=== PATIENT | male | born 1970 | race Caucasian/White ===

== ENCOUNTER 2017-02-13 08:31 | Emergency (ER) | payer OTHER ==
[~2017-02-13] VITALS: Ht 182.9 cm; Wt 68.0 kg
[2017-02-13 08:45] VITALS: BP 147/88
--- NOTE | 2017-02-13 08:49 | ED NECK/BACK PAIN COMPLAINT ---
History of Present Illness General Chief Complaint: Low Back Pain/Injury Stated Complaint: LOW BACK PAIN Source: patient Exam Limitations: no limitations Vital Signs & Intake/Output Vital Signs & Intake/Output Vital Signs Date Time Temp Pulse Resp B/P Pulse O2 O2 Flow FiO2 Ox Delivery Rate 02/13 0845 98.5 94 16 147/88 99 Room Air Allergies Coded Allergies: No Known Allergies (02/13/17) Reconcile Medications Cyclobenzaprine HCl 10 MG TABLET 1 TAB PO QPM PRN MUSCLE RELAXOR Ketorolac Tromethamine 10 MG TABLET 1 TAB PO TID PRN pain Methylprednisolone. (Medrol) 4 MG TAB.DS.PK 1 DP PO AD INFLAMMATION 6 on day 1 then reduce by one tablet daily until gone Triage Note: PT STATES THAT HIS R SIDE LOW BACK HAS BEEN BOTHERING HIME FOR ABOUT 6 WEEKS. PAIN SHOOTS DOWN HIS LEG. UNABLE TO SLEEP DUE TO THE PAIN AND THIS AM WOKE WITH NAUSEA. PT STATES THAT HE IS STRESSED. NOTED TO BE ANXIOUS AT TRIAGE. Triage Nurses Notes Reviewed? yes Onset: Gradual Duration: constant Timing: recent history Radiation: buttocks, upper legs HPI: Patient is a 46 year old male with a past medical history of chronic back pain 10 years who presents emergency and at the past 6 weeks his back pain has worsened and which now he is complaining of waxing and waning right-sided gluteal and upper leg posterior paresthesia and pain. Patient has taken over- the-counter NSAIDs with minimal relief of symptoms. Patient denies any mechanism injury or fall or trauma. Denies any surgical intervention his back. Denies any abdominal pain lower extremity swelling fevers chills. Patient does not have a primary care doctor. Patient states that due to the pain he has difficulty sleeping (HEBER TERRAZAS) Past History Travel History Traveled to [place] past 21 day No Medical History Any Pertinent Medical History? 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 No (HEBER TERRAZAS) Review of Systems Review of Systems Constitutional: Reports: no symptoms. Eyes: Reports: no symptoms. Ears, Nose, Throat, Mouth: Reports: no symptoms. Respiratory: Reports: no symptoms. Cardiovascular: Reports: no symptoms. Gastrointestinal/Abdominal: Reports: see HPI, nausea. Musculoskeletal: Reports: see HPI, back pain, muscle pain. Skin: Reports: no symptoms. Neurological/Psychological: Reports: no symptoms. All Other Systems: Reviewed and Negative (HEBER TERRAZAS) Physical Exam Physical Exam General Appearance: anxious Neck: normal inspection, supple, full range of motion Comments: HEENT: Normal EENT exam, Neck: Supple, no lymphadenopathy, normal range of motion without pain or tenderness Back: Normal inspection mild right lateral paralumbar muscular pain, no central spinous tenderness, mild decreased active range of motion noted Cardiovascular: Regular rate and rhythms no murmurs rubs or gallops, normal JVP Respiratory: Chest nontender. No respiratory distress.breath sounds clear to auscultation bilaterally Abdomen: Soft, nontender nondistended, no appreciable organomegaly. Normal bowel sounds. No ascites Extremity: No edema, no calf tenderness to palpation, normal and equal pulses. Bilateral lower extremity myotomes dermatomes intact Neuro: Alert oriented x3, motor sensory normal, Skin: No appreciable rash on exposed skin, skin is warm and dry. Psych: Mood and affect is normal, memory and judgment is normal. (HEBER TERRAZAS) Progress Differential Diagnosis: AAA, aortic dissection, C spine injury, carotid dissection, cauda equina syn, herniated disc, myofascial strain, pyelo/UTI, sciatica, spinal cord inj, thoracic outlet syn, T/L spine injury, ureterolithiasis Plan of Care: Current Medications Sig/Autumn Start time Last Medication Dose Stop Time Status Admin Ketorolac 30 MG ONCE ONE 02/13 915 UNVr Tromethamine 02/14 916 (Toradol) Prednisone 60 MG ONCE ONE 02/13 915 UNVr 02/14 916 Patient was requesting Ativan for his symptoms however patient due to HPI and exam findings has suspicion of lumbar radiculopathy. Patient does state that he tried his mother's opiates with no relief of symptoms. Patient's lower extremity were neurovascularly intact. Nontender abdomen patient was drinking water in the emergency room the patient had normal steady gait. Patient was strongly advised to follow up and establish a primary care doctor (HEBER TERRAZAS) Departure Departure Disposition: HOME OR SELF CARE Condition: Stable Clinical Impression Primary Impression: Back pain Secondary Impressions: Lumbar radiculopathy Referrals: PATIENT HAS NO PRIMARY CARE DR (PCP/Family) Additional Instructions: As discussed begin icing or heating the area 20 minutes every 2 hours for your symptoms. Begin the prescription OF ketorolac for pain and inflammation. Begin the prescription of Medrol Dosepak tomorrow as YOU HAVE received prednisone in the emergency room today, you WILL RECEIVE A phone call to set up a primary care doctor's appointment for further evaluation treatment, please go to this appointment. Prescriptions waiting at [facility]. If symptoms worsen return to emergency room Departure Forms: Customer Survey General Discharge Information Prescriptions: Current Visit Scripts Ketorolac Tromethamine 1 TAB PO TID PRN pain #15 TAB Methylprednisolone. (Medrol) 1 DP PO AD #1 DP 6 on day 1 then reduce by one tablet daily until gone Cyclobenzaprine HCl 1 TAB PO QPM PRN MUSCLE RELAXOR #7 TAB (HEBER TERRAZAS) PA/CALL WORKER PERSON Co-Sign Statement Statement: ED Attending supervision documentation- [] I saw and evaluated the patient. I have also reviewed all the pertinent lab results and diagnostic results. I agree with the findings and the plan of care as documented in the PA's/CALL WORKER PERSON's documentation. [X] I have reviewed the ED Record and agree with the PA's/CALL WORKER PERSON's documentation. [] Additions or exceptions (if any) to the PAs/CALL WORKER PERSON's note and plan are summarized below: [] (LUIS FINN,MAGDALENA)
[2017-02-13] MEDS ORDERED: KETOROLAC TROME10 M1 PO (09:04)
[2017-02-13] MEDS ORDERED: MEDROL4 M2 PO (09:04)
[2017-02-13] MEDS ORDERED: CYCLOBENZAPRINE10 M1 PO (09:04)
== END 2017-02-13 09:32 ==
LOC: ERH 08:31
DX: M54.5 Low back pain (principal); M54.16 Radiculopathy, lumbar region
CPT/HCPCS: 96372; J1885

== ENCOUNTER 2017-02-18 06:57 | Emergency (ER) | payer OTHER ==
[~2017-02-18] VITALS: Ht 182.9 cm; Wt 68.0 kg
[~2017-02-18 06:57] MED LIST: CYCLOBENZAPRINE10 M1 PO; KETOROLAC TROME10 M1 PO; MEDROL4 M2 PO
--- NOTE | 2017-02-18 08:45 | ED NECK/BACK PAIN COMPLAINT ---
History of Present Illness General Chief Complaint: Low Back Pain/Injury Stated Complaint: BACK PAIN Source: patient, old records Exam Limitations: no limitations Vital Signs & Intake/Output Vital Signs & Intake/Output Vital Signs Date Time Temp Pulse Resp B/P Pulse O2 O2 Flow FiO2 Ox Delivery Rate 02/18 0928 96.2 61 18 164/92 98 Room Air 02/18 0708 98.9 94 20 125/71 96 Room Air Allergies Coded Allergies: No Known Allergies (02/13/17) Reconcile Medications No Known Home Medications Triage Note: PT TO ED C/O CHRONIC BACK PAIN. WAS SEEN IN ED FOR THE SAME A FEW DAYS AGO. STATES HE RAN OUT OF MEDICATIONS. Triage Nurses Notes Reviewed? yes Onset: 1 month Duration: week(s):, constant, continues in ED, waxing and waning Timing: recent history Quality/Severity: severe, radiation, sharpness Location: lumbar spine, paraspinous muscles Radiation: buttocks, upper legs, lower legs Context: lifting, turning/bending Method of Injury: prior injury, twisted Loss of Consciousness: no loss of consciousness Modifying Factors: movement Associated Symptoms: lower back pain, muscle spasm, trouble walking HPI: 1 month prior to admission patient reports recurrent back pain after throwing garbage dumpster. He complains of right low back pain moderate to severe waxing and waning described as sharp radiating to the buttocks upper and lower leg worse with turning bending. He denies fever chills nausea vomiting diarrhea abdominal pain chest pain shortness breath headache dysuria rash bleeding change in motor sensory function change in bowel bladder habit. Past History Travel History Traveled to [place] past 21 day No Medical History Any Pertinent Medical History? 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 No Review of Systems Review of Systems Constitutional: Reports: no symptoms. Eyes: Reports: no symptoms. Ears, Nose, Throat, Mouth: Reports: no symptoms. Respiratory: Reports: no symptoms. Cardiovascular: Reports: no symptoms. Gastrointestinal/Abdominal: Reports: no symptoms. Musculoskeletal: Reports: see HPI, back pain. Skin: Reports: no symptoms. Neurological/Psychological: Reports: no symptoms. All Other Systems: Reviewed and Negative Physical Exam Physical Exam General Appearance: well developed/nourished, alert, awake, anxious, moderate distress Head: atraumatic, normal appearance Eyes: Bilateral: PERRL, EOMI. Ears, Nose, Throat, Mouth: hearing grossly normal Neck: normal inspection, supple, full range of motion, normal alignment Respiratory: normal breath sounds, chest non-tender, no respiratory distress, quiet respiration, lungs clear Cardiovascular: regular rate/rhythm, normal peripheral pulses, norml femoral pulses equa Peripheral Pulses: 4+ carotid (R), 4+ carotid (L) Gastrointestinal: normal bowel sounds, soft, non-tender, no organomegaly Back: normal inspection, decreased range of motion, muscle spasm, no vertebral tenderness Extremities: non-tender, normal range of motion Straight Leg Raising: Right: Pain at ____ degrees (5). Left: Pain at ____ degrees (5). Sensory: Medial Le: L4R, L4L. Top of Foot: 2: L5R, L5L. Sole of Foot: 2: SIR, VIVIANA. Motor: Deficit L4 Right: No Deficit L4 Left: No Deficit L5 Right: No Deficit L5 Left: No Deficit S1 Right: No Deficit S1 Right: No Ext. Big Toe: 3: L5 Left, L5 Right. DTR: Deficit L4 Left: No Deficit L4 Right: No Deficit S1 Left: No Deficit S1 Right: No Patellar: 3: L4 Right, L4 Left. 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 Discussed w/RAD: CT Scan. Radiology Impression: 1. No acute fracture or malalignment within the lumbar spine. 2. L4-L5 disc bulge and apparent small superimposed left paracentral disc protrusion. At L4-L5, there is [id number] right-sided foraminal stenosis and at least moderate left sided foraminal stenosis. 3. L5-S1 disc bulge and superimposed right paracentral disc extrusion resulting in posterior displacement/ impingement upon the transiting right S1 nerve root. Consider MR imaging of the lumbar spine to confirm these findings and better evaluate the soft tissue structures of the spine. Departure Departure Time of Disposition: 934 Disposition: HOME OR SELF CARE Condition: Stable Clinical Impression Primary Impression: Sciatica due to displacement of lumbar intervertebral disc Referrals: [facility] You should receive a call within the week to establish a primary care appointment. GEORGIE FINN,AMARI Manuel Call for neurosurgery follow up Departure Forms: Customer Survey General Discharge Information RELEASE- WORK Prescriptions: Current Visit Scripts Ibuprofen 1 TAB PO Q6PRN PRN pain #50 TAB Diazepam (Valium) 1-2 TAB PO Q6P PRN muscle strain/spasm #30 TAB Ref 1 Oxycodone HCl/Acetaminophen (Percocet 5-325 MG Tablet) 1 TAB PO Q6P PRN severe pain #15 TAB
--- NOTE | 2017-02-18 09:13 | CT SCAN REPORT ---
EXAMINATION: CT LUMBAR SPINE WITHOUT CONTRAST CLINICAL INFORMATION: 46-year-old male with right back pain radiating to the foot. COMPARISON: None TECHNIQUE: Helical non-contrast CT images were obtained through the lumbar spine and 0.625 mm, 1.25 and 2.5 mm axial reconstructions were reviewed along with sagittal and coronal MPRs. DLP: 272 mGy-cm FINDINGS: There is normal segmentation of the lumbar spine. The lumbar vertebra have well preserved height and alignment. The anterior and posterior elements are intact. No evidence of spondylolysis, spondylolisthesis or vertebral compression fracture. No paraspinal soft tissue mass or paraspinal fluid collection. Mild atherosclerotic calcification of the visualized abdominal aorta without aneurysm. No para-aortic lymphadenopathy. SPINAL LEVELS: T12-L1: Unremarkable. L1-L2: Unremarkable. L2-L3: The disc height is maintained. Mild disc bulge and mild facet arthropathy. No significant narrowing of the central spinal canal or neural foramina. L3-L4: The disc height is maintained. Mild disc bulge encroaches upon the inferior aspect of each neural foramen (right more so than left) resulting in mild bilateral foraminal narrowing. There is no high-grade foraminal stenosis or central canal stenosis. L4-L5: Minimal disc space narrowing, broad disc bulge and mild right-sided facet arthropathy. The disc bulge and vertebral osteophytes produce [id number]-[id number] right-sided foraminal stenosis and at least moderate left-sided foraminal stenosis as manifest by loss of perineural fat around the exiting left L4 nerve root. There is suggestion of a superimposed small left paracentral disc protrusion at this level. L5-S1: Disc bulge with apparent superimposed right paracentral disc extrusion. The extruded disc posteriorly displaces/compresses the transiting right S1 nerve root. Bulging disc material encroaches upon the inferior aspect of each neural foramen producing [id number] bilateral foraminal stenosis. There is mild right-sided facet hypertrophy. Sacrum and sacroiliac joints: Unremarkable. IMPRESSION: 1. No acute fracture or malalignment within the lumbar spine. 2. L4-L5 disc bulge and apparent small superimposed left paracentral disc protrusion. At L4-L5, there is [id number] right-sided foraminal stenosis and at least moderate left sided foraminal stenosis. 3. L5-S1 disc bulge and superimposed right paracentral disc extrusion resulting in posterior displacement/ impingement upon the transiting right S1 nerve root. Consider MR imaging of the lumbar spine to confirm these findings and better evaluate the soft tissue structures of the spine.
[2017-02-18 09:28] VITALS: BP 164/92
[2017-02-18] MEDS ORDERED: PERCOCET 5-3251 EACH PO (09:38)
[2017-02-18] MEDS ORDERED: VALIUM5 M2 PO (09:38)
[2017-02-18] MEDS ORDERED: IBUPROFEN800 M1 PO (09:38)
== END 2017-02-18 09:47 ==
LOC: ERH 06:57
DX: M54.41 Lumbago with sciatica, right side (principal); M51.26 Other intervertebral disc displacement, lumbar region
CPT/HCPCS: 96374; 96375; J1885; J3360

== ENCOUNTER 2017-03-02 09:03 | Emergency (ER) | payer OTHER ==
[~2017-03-02] VITALS: Ht 182.9 cm; Wt 68.0 kg
[~2017-03-02 09:03] MED LIST changes: +IBUPROFEN800 M1 PO; +PERCOCET 5-3251 EACH PO; +VALIUM5 M2 PO
[2017-03-02 09:14] VITALS: BP 142/91
--- NOTE | 2017-03-02 09:47 | ED NECK/BACK PAIN COMPLAINT ---
History of Present Illness General Chief Complaint: Low Back Pain/Injury Stated Complaint: LOWER BACK PAIN Source: patient, old records Exam Limitations: no limitations Vital Signs & Intake/Output Vital Signs & Intake/Output ED Intake and Output 03/03 0000 03/02 1200 Intake Total Output Total Balance Patient 150 lb Weight Allergies Coded Allergies: No Known Allergies (02/13/17) Reconcile Medications Dexamethasone 4 MG TABLET 2 TAB PO DAILY lumbar radiculopathy Diazepam (Valium) 5 MG TABLET 1 TAB PO Q8 PRN pain/muscle relaxant Diazepam (Valium) 5 MG TABLET 1-2 TAB PO Q6P PRN muscle strain/spasm Ibuprofen 800 MG TABLET 1 TAB PO Q6PRN PRN pain Oxycodone HCl/Acetaminophen (Percocet 5-325 MG Tablet) 5 MG-325 MG TABLET 1 TAB PO Q6P PRN severe pain Triage Note: 47 Y/O MALE C/O LOW BACK PAIN RADIATING DOWN R LEG; 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" AND HAS BEEN PRESCRIBED VARIOUS MEDICATIONS - STATES DIAZAPEM HAS WORKED THE BEST; TOOK 800 MG MOTRIN APPROX 1 HOUR AGO WITH SOME RELIEF. UNABLE TO F/U WITH NEUROSURGEON DUE TO INSURANCE ALSO UNABLE TO OBTAIN OUTPATIENT MRI. Triage Nurses Notes Reviewed? yes HPI: Patient is a 47-year-old male presents complaining of severe right low back pain radiating down the right lower extremity. Patient reports that he began with pain approximately 10 years ago, exacerbated over the past 2-3 months. Patient has been seen multiple times in the emergency department. Patient had a CT scan of his lumbar spine showing herniated disks. Patient saw his primary care provider last week and reports that he is being referred to pain management and possibly for an MRI. Patient reports pain is consistent with his chronic pain radiates down his right lower extremity with intermittent paresthesias in his right toes. Patient does not recall any recent injuries that caused his exacerbation of pain. Patient has been taking ibuprofen and Valium with moderate improvement. Last dose of Valium was last night. Patient denies incontinence, numbness in his rectum, rash, fevers. (ROBBY UNDERWOOD,AMARI) Past History Travel History Traveled to [place] past 21 day No Medical History Any Pertinent Medical History? 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 No (AMARI NIETO) Review of Systems Review of Systems Constitutional: Denies: chills, fever. Eyes: Reports: no symptoms. Ears, Nose, Throat, Mouth: Reports: no symptoms. Respiratory: Reports: no symptoms. Cardiovascular: Reports: no symptoms. Gastrointestinal/Abdominal: Denies: abdominal pain. Musculoskeletal: Reports: see HPI. Skin: Reports: no symptoms. Neurological/Psychological: Reports: see HPI. (AMARI NIETO) Physical Exam Physical Exam General Appearance: well developed/nourished, alert, awake Head: atraumatic, normal appearance Eyes: Bilateral: normal appearance, PERRL, EOMI. Ears, Nose, Throat, Mouth: hearing grossly normal Neck: normal inspection, supple, full range of motion Respiratory: normal breath sounds, chest non-tender, no respiratory distress, lungs clear Cardiovascular: normal peripheral pulses Peripheral Pulses: 2+ dorsalis pedis (R), 2+ dorsalis pedis (L) Gastrointestinal: soft, non-tender Back: mild right lumbar paraspinal tenderness Straight Leg Raising: Right: Pain at ____ degrees (30). DTR: Patellar: 2: L4 Right, L4 Left. Achilles: 2: S1 Right, S1 Left. Neurologic/Psych: no motor/sensory deficits, awake, alert, oriented x 3 (AMARI NIETO) Progress Differential Diagnosis: cauda equina syn, herniated disc, myofascial strain, sciatica, spinal cord inj, T/L spine injury Plan of Care: Patient does not appear to require emergent MRI. (AMARI NIETO) Departure Departure Time of Disposition: 955 Disposition: HOME OR SELF CARE Condition: Stable Clinical Impression Primary Impression: Lumbar disc herniation with radiculopathy Referrals: NIKOLAS LY APRN (PCP/Family) Additional Instructions: Contact your primary care provider today. Return to the ER if numbness in your rectum, incontinence, increasing weakness, or worsening of symptoms. Departure Forms: Customer Survey General Discharge Information Prescriptions: Current Visit Scripts Diazepam (Valium) 1 TAB PO Q8 PRN pain/muscle relaxant #12 TAB Dexamethasone 2 TAB PO DAILY #6 TAB (AMARI NIETO) PA/HOSPITAL LIBRARIAN Co-Sign Statement Statement: ED Attending supervision documentation- [] I saw and evaluated the patient. I have also reviewed all the pertinent lab results and diagnostic results. I agree with the findings and the plan of care as documented in the PA's/HOSPITAL LIBRARIAN's documentation. [X] I have reviewed the ED Record and agree with the PA's/HOSPITAL LIBRARIAN's documentation. [] Additions or exceptions (if any) to the PAs/HOSPITAL LIBRARIAN's note and plan are summarized below: [] (LUIS FINN,MAGDALENA)
[2017-03-02] MEDS ORDERED: VALIUM5 M2 PO (09:58)
[2017-03-02] MEDS ORDERED: DEXAMETHASONE4 M1 PO (09:58)
== END 2017-03-02 10:03 ==
LOC: ERH 09:03
DX: M51.16 Intervertebral disc disorders with radiculopathy, lumbar region (principal)

== ENCOUNTER 2017-04-15 11:06 | Emergency (ER) | payer OTHER ==
[~2017-04-15] VITALS: Ht 182.9 cm; Wt 63.5 kg
[~2017-04-15 11:06] MED LIST changes: +DEXAMETHASONE4 M1 PO
[2017-04-15 11:09] VITALS: BP 148/85
--- NOTE | 2017-04-15 11:28 | ED NECK/BACK PAIN COMPLAINT ---
History of Present Illness General Chief Complaint: Low Back Pain/Injury Stated Complaint: BACK PAIN Source: patient Exam Limitations: no limitations Vital Signs & Intake/Output Vital Signs & Intake/Output Vital Signs Date Time Temp Pulse Resp B/P B/P Pulse O2 O2 Flow FiO2 Mean Ox Delivery Rate 04/15 1109 98.0 118 20 148/85 98 Room Air Allergies Coded Allergies: No Known Allergies (02/13/17) Reconcile Medications Diazepam (Valium) 5 MG TABLET 1 TAB PO BIDP PRN back spasms Methylprednisolone. (Medrol) 4 MG TAB.DS.PK 1 DP PO AD back pain 6 on day 1 then reduce by one tablet daily until gone Oxycodone HCl/Acetaminophen (Percocet 5-325 MG Tablet) 5 MG-325 MG TABLET 1 TAB PO BID PRN pain Triage Note: PT TO ED C/O CHRONIC BACK PAIN. HAS BEEN SEEN IN ED MULTIPLE TIMES FOR SAME. Triage Nurses Notes Reviewed? yes Onset: Gradual Duration: worse persistent since (4 months) Timing: recent history Quality/Severity: moderate, severe Location: lumbar spine, paraspinous muscles Context: old injury HPI: Patient is a 47-year-old male presenting to the emergency department with chief complaint of low back pain going on for the past 5-10 years worse over the past 4 months. Patient reports that pain is worse with movement. Pain occasionally radiates down both legs, right greater than left. Patient also reports that he' s had intermittent weakness in the right lower extremity and noticed that his muscles are smaller on the right lower extremity over the past several months. Denies any urinary incontinence or retention. No abdominal pain. Has been taking Motrin [id number] without relief. Patient reports that he has been seen and evaluated here over the past several months for similar symptoms. He tried to get into see an case resolution specialist but they will not see him until he gets the MRI. So far patient's insurance has denied obtaining the MRI as an outpatient procedure. Has not had any physical therapy for his symptoms. Patient not sure what to do at this point. No fevers or chills. (ROSALIA MAXWELL) Past History Travel History Traveled to [place] past 21 day No Medical History Any Pertinent Medical History? 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 No (ROSALIA MAXWELL) Review of Systems Review of Systems Constitutional: Reports: no symptoms. Comments Review of systems: See HPI, All other systems negative. Constitutional, no chills fever HEENT: No visual changes no sore throat no congestion Cardiovascular: No chest pain ,palpitation Skin, no jaundice no rashes Respiratory: No dyspnea cough sputum or hemoptysis GI: No nausea no vomiting : No dysuria No hematuria Muscle skeletal: no neck pain, Neurologic: No numbness no confusion no espinosa Psych: No stress anxiety or depression,. Heme/endocrine: No bruising no bleeding no polyuria or polydipsia Immunology: No splenectomy or history of AIDS (ROSALIA MAXWELL) Physical Exam Physical Exam General Appearance: no apparent distress, thin Neck: normal inspection, supple Comments: Well-developed well-nourished person in no acute distress HEENT: Normal EENT exam, extraocular motion intact, no nystagmus. Pupils equally round and reactive to light and accommodation. Nose is atraumatic. Pharynx normal. No swelling or edema. Neck: Supple, no lymphadenopathy, normal range of motion without pain or tenderness Back: Tenderness over lumbar spine and lumbar paraspinal muscles, no CVA tenderness. Range of motion with forward flexion and extension limited due to pain Cardiovascular: Regular rate and rhythms no murmurs rubs or gallops, normal JVP Respiratory: Chest nontender. No respiratory distress.breath sounds clear to auscultation bilaterally Abdomen: Soft, nontender nondistended, no appreciable organomegaly. Normal bowel sounds. No ascites Extremity: No edema, no calf tenderness to palpation, normal and equal pulses. Neuro: Alert oriented x3, diminished sensation over right calf, patellar, reflexes 2+ bilaterally, right lower extremity strength 4/5 with knee extension and knee flexion, left lower extremity strength 5/5 Skin: No appreciable rash on exposed skin, skin is warm and dry. Psych: Mood and affect is normal, memory and judgment is normal. (ROSALIA MAXWELL) Progress Differential Diagnosis: cauda equina syn, herniated disc, myofascial strain, pyelo/UTI, sciatica, spinal cord inj, T/L spine injury Plan of Care: Orders Procedure Date/time Status MRI-LUMBAR SPINE 04/15 1131 Active Diagnostic Imaging: Viewed by Me: MRI. Discussed w/RAD: MRI. Radiology Impression: PATIENT: JOSEE BRADLEY PRESENT AGE: 47 PATIENT ACCOUNT NO: [id number] : 70 LOCATION: [facility] ORDERING PHYSICIAN: ROSALIA UNDERWOOD SERVICE DATE: 04/15/17 EXAM TYPE: MRI - MRI-LUMBAR SPINE EXAMINATION: MR LUMBAR SPINE WITHOUT CONTRAST CLINICAL INFORMATION: Right lower extremity weakness. Decreased sensation. COMPARISON: CT scan of the lumbar spine 02/18/2017. TECHNIQUE: MRI of the lumbar spine without contrast was obtained using routine sequences. FINDINGS: There is nonspecific straightening of lumbar lordosis. Vertebral alignment is otherwise maintained in the sagittal dimension. Vertebral body heights are preserved. There are type I degenerative endplate changes at L5-S1. Bone marrow signal intensity is otherwise unremarkable. The tip of the conus medullaris is located at the level of L1-L2. No mass effect on the conus. Visualized distal cord signal intensity is normal. At L1-L2 the annular contour is normal. There is asymmetric arthrosis of the left facet joint. No canal or neuroforaminal compromise. At L2-L3 there is a broad right far lateral protrusion superimposed upon a diffusely bulging disc causing ventral flattening of the thecal sac. Bilateral facet degenerative change. Mild mass effect on the extraforaminal segment of the right L2 nerve root. At L3-L4 there is a broad right far lateral protrusion superimposed upon a diffusely bulging disc causing ventral flattening of the thecal sac. Bilateral facet degenerative change. There is mild mass effect on the extraforaminal segments of both L3 nerve roots. At L4-L5 there is diffusely bulging disc. Bilateral facet degenerative change. No canal stenosis. Moderate compression of the foraminal segment of the left L4 nerve root and mild mass effect on the foraminal segment of the right L4 nerve root. At L5-S1 there is a prominent right subarticular extrusion with 0.9 cm caudal subligamentous extension of extruded disc material that severely compresses the right traversing S1 nerve roots and medially displaces the right traversing S2 nerve roots. Mild mass effect on the foraminal segments of both L5 nerve roots at this level. Limited visualization of the retroperitoneal structures reveals no abnormal finding. Psoas and paraspinal muscle groups are symmetric. IMPRESSION: There is a prominent right subarticular extrusion at L5-S1 that severely compresses the right traversing S1 nerve roots and medially displaces the right traversing S2 nerve roots. There is no canal stenosis. There are varying degrees of mass effect on the foraminal and extraforaminal segments of the nerve roots at multiple additional levels as described above. For instance at L4-L5 there is moderate compression of the foraminal segment of left L4 nerve root and mild mass effect on the foraminal segment of the right L4 nerve root. (AZALEA UNDERWOOD,ROSALIA) Departure Departure Time of Disposition: 1416 Disposition: HOME OR SELF CARE Condition: Stable Clinical Impression Primary Impression: Back pain Qualifiers: Back pain location: low back pain Chronicity: chronic Back pain laterality: right Sciatica presence: with sciatica Sciatica laterality: sciatica of right side Qualified Codes: M54.41 - Lumbago with sciatica, right side; G89.29 - Other chronic pain Referrals: NAS FINN,NIKOLAS FORREST APRN (PCP/Family) Additional Instructions: Follow-up with your orthopedic as well as neurosurgery call to make an appointment. Take pain medication as prescribed. Return for worsening symptoms or concerns. PATIENT: JOSEE BRADLEY PRESENT AGE: 47 PATIENT ACCOUNT NO: [id number] : 70 LOCATION: [facility] ORDERING PHYSICIAN: ROSALIA UNDERWOOD SERVICE DATE: 04/15/17 EXAM TYPE: MRI - MRI-LUMBAR SPINE EXAMINATION: MR LUMBAR SPINE WITHOUT CONTRAST CLINICAL INFORMATION: Right lower extremity weakness. Decreased sensation. COMPARISON: CT scan of the lumbar spine 02/18/2017. TECHNIQUE: MRI of the lumbar spine without contrast was obtained using routine sequences. FINDINGS: There is nonspecific straightening of lumbar lordosis. Vertebral alignment is otherwise maintained in the sagittal dimension. Vertebral body heights are preserved. There are type I degenerative endplate changes at L5-S1. Bone marrow signal intensity is otherwise unremarkable. The tip of the conus medullaris is located at the level of L1-L2. No mass effect on the conus. Visualized distal cord signal intensity is normal. At L1-L2 the annular contour is normal. There is asymmetric arthrosis of the left facet joint. No canal or neuroforaminal compromise. At L2-L3 there is a broad right far lateral protrusion superimposed upon a diffusely bulging disc causing ventral flattening of the thecal sac. Bilateral facet degenerative change. Mild mass effect on the extraforaminal segment of the right L2 nerve root. At L3-L4 there is a broad right far lateral protrusion superimposed upon a diffusely bulging disc causing ventral flattening of the thecal sac. Bilateral facet degenerative change. There is mild mass effect on the extraforaminal segments of both L3 nerve roots. At L4-L5 there is diffusely bulging disc. Bilateral facet degenerative change. No canal stenosis. Moderate compression of the foraminal segment of the left L4 nerve root and mild mass effect on the foraminal segment of the right L4 nerve root. At L5-S1 there is a prominent right subarticular extrusion with 0.9 cm caudal subligamentous extension of extruded disc material that severely compresses the right traversing S1 nerve roots and medially displaces the right traversing S2 nerve roots. Mild mass effect on the foraminal segments of both L5 nerve roots at this level. Limited visualization of the retroperitoneal structures reveals no abnormal finding. Psoas and paraspinal muscle groups are symmetric. IMPRESSION: There is a prominent right subarticular extrusion at L5-S1 that severely compresses the right traversing S1 nerve roots and medially displaces the right traversing S2 nerve roots. There is no canal stenosis. There are varying degrees of mass effect on the foraminal and extraforaminal segments of the nerve roots at multiple additional levels as described above. For instance at L4-L5 there is moderate compression of the foraminal segment of left L4 nerve root and mild mass effect on the foraminal segment of the right L4 nerve root. Departure Forms: Customer Survey General Discharge Information Prescriptions: Current Visit Scripts Oxycodone HCl/Acetaminophen (Percocet 5-325 MG Tablet) 1 TAB PO BID PRN pain #10 TAB Methylprednisolone. (Medrol) 1 DP PO AD #1 DP 6 on day 1 then reduce by one tablet daily until gone Diazepam (Valium) 1 TAB PO BIDP PRN back spasms #10 TAB (ROSALIA MAXWELL) PA/[employer] P[employer]ER Co-Sign Statement Statement: ED Attending supervision documentation- [] I saw and evaluated the patient. I have also reviewed all the pertinent lab results and diagnostic results. I agree with the findings and the plan of care as documented in the PA's/FINE ARTS PACKER's documentation. [X] I have reviewed the ED Record and agree with the PA's/FINE ARTS PACKER's documentation. [] Additions or exceptions (if any) to the PAs/FINE [employer] PACKER's note and plan are summarized below: [] (ALEXANDER HARPER DO
--- NOTE | 2017-04-15 13:59 | MRI REPORT ---
EXAMINATION: MR LUMBAR SPINE WITHOUT CONTRAST CLINICAL INFORMATION: Right lower extremity weakness. Decreased sensation. COMPARISON: CT scan of the lumbar spine 02/18/2017. TECHNIQUE: MRI of the lumbar spine without contrast was obtained using routine sequences. FINDINGS: There is nonspecific straightening of lumbar lordosis. Vertebral alignment is otherwise maintained in the sagittal dimension. Vertebral body heights are preserved. There are type I degenerative endplate changes at L5-S1. Bone marrow signal intensity is otherwise unremarkable. The tip of the conus medullaris is located at the level of L1-L2. No mass effect on the conus. Visualized distal cord signal intensity is normal. At L1-L2 the annular contour is normal. There is asymmetric arthrosis of the left facet joint. No canal or neuroforaminal compromise. At L2-L3 there is a broad right far lateral protrusion superimposed upon a diffusely bulging disc causing ventral flattening of the thecal sac. Bilateral facet degenerative change. Mild mass effect on the extraforaminal segment of the right L2 nerve root. At L3-L4 there is a broad right far lateral protrusion superimposed upon a diffusely bulging disc causing ventral flattening of the thecal sac. Bilateral facet degenerative change. There is mild mass effect on the extraforaminal segments of both L3 nerve roots. At L4-L5 there is diffusely bulging disc. Bilateral facet degenerative change. No canal stenosis. Moderate compression of the foraminal segment of the left L4 nerve root and mild mass effect on the foraminal segment of the right L4 nerve root. At L5-S1 there is a prominent right subarticular extrusion with 0.9 cm caudal subligamentous extension of extruded disc material that severely compresses the right traversing S1 nerve roots and medially displaces the right traversing S2 nerve roots. Mild mass effect on the foraminal segments of both L5 nerve roots at this level. Limited visualization of the retroperitoneal structures reveals no abnormal finding. Psoas and paraspinal muscle groups are symmetric. IMPRESSION: There is a prominent right subarticular extrusion at L5-S1 that severely compresses the right traversing S1 nerve roots and medially displaces the right traversing S2 nerve roots. There is no canal stenosis. There are varying degrees of mass effect on the foraminal and extraforaminal segments of the nerve roots at multiple additional levels as described above. For instance at L4-L5 there is moderate compression of the foraminal segment of left L4 nerve root and mild mass effect on the foraminal segment of the right L4 nerve root.
[2017-04-15] MEDS ORDERED: PERCOCET 5-3251 EACH PO (14:18)
[2017-04-15] MEDS ORDERED: MEDROL4 M2 PO (14:18)
[2017-04-15] MEDS ORDERED: VALIUM5 M2 PO (14:26)
== END 2017-04-15 14:30 ==
LOC: ERH 11:06
DX: M54.5 Low back pain (principal)
CPT/HCPCS: 72148; 96372; J1885